=== PATIENT | female | born 1930 | race Caucasian/White ===

== ENCOUNTER 2017-04-21 14:41 | Inpatient (IN) | payer MEDICARE, BC ==
[~2017-04-21] VITALS: Ht 167.6 cm; Wt 68.0 kg
--- NOTE | ~2017-04-21 | OP ---
PATIENT NAME: ÁNGEL KHAN MEDICAL RECORD: [id number] :30 LOCATION:[id number] ADMISSION DATE:04/21/17 SURGEON: IGNACIO REYNA MD DATE OF OPERATION: 04/23/2017 PREOPERATIVE DIAGNOSIS: Left intertrochanteric hip fracture. POSTOPERATIVE DIAGNOSIS: Left intertrochanteric hip fracture. PROCEDURE: Cephalomedullary nail fixation of the intertrochanteric hip fracture -- gamma nail. SURGEON: Ignacio Reyna MD ANESTHESIA: General. INTRAOPERATIVE COMPLICATIONS: None. SUMMARY OF PATHOLOGIC FINDINGS: Intertrochanteric hip fracture consistent with the preoperative diagnosis and radiographs. IMPLANTS USED: Short gamma nail 125 with a 100-mm lag screw and a 35 mm distal interlocking screw. OPERATIVE SUMMARY IN DETAIL: After obtaining the appropriate preoperative orthopedic surgery consents as well as anesthetic consultation, evaluation, and clearance, the patient was brought to the operating room and placed on the operating table in supine position. After adequate general laryngeal mask airway was administered, the patient was placed on the fracture table. All pressure points were well padded. She was held firmly to the fracture table using the belt and strap system. Left leg was placed in the traction device, right leg was placed in a well- padded well leg mora. Under direct fluoroscopy, reduction maneuver was performed, the hip was prepped and draped in a routine sterile fashion. A small incision was made under fluoroscopic guidance just superior to the tip of the greater trochanter. An awl was then used to create an entry point for the ball-tipped guidewire and proximal reaming was then followed by insertion of the short gamma nail 11 x 180 x 125. The tip was then placed in the low center on AP and lateral fluoroscopic planes. Reaming was then followed by placement of 100 mm lag screw. Lag screw was placed at the appropriate depth and then compression was performed across the fracture. Lastly, the interlocking screw was placed again under fluoroscopy. Final radiographs were taken and submitted for radiologist review. Wounds were irrigated and closed in usual fashion. Sterile dressings were applied. The patient was awakened and taken to recovery room in stable condition. All final needle and sponge counts were correct. TRANSINT:[id number] Voice Confirmation ID: [id number] DOCUMENT ID: [id number] OPERATIVE REPORT [id number] ÁNGEL KHAN MD, JAMES KEVIN at 1427 CC: [id number] DICTATION DATE: 04/23/17 1140 SENIOR IOS DEVELOPER: 04/23/17 1159 ADM IN [place] [id number] [place] [id number]
[~2017-04-21 14:41] MED LIST: ARICEPT10 MG PO; BAYER CHEWABLE81 MG PO; BYSTOLIC5 MG PO; CELEXA10 MG PO; FORTAMET500 MG/BOT PO; HUMULIN R100 U/ML SC; LISINOPRIL10 MG PO; NAMENDA5 MG PO; PEPCID20 MG PO; VITAMIN D2000 UNIT PO; XARELTO20 MG PO; ZOCOR5 MG PO
[2017-04-21 16:02] LABS: BASOPHILS 0.1 % (0-2); EOSINOPHILS 1.4 % (0-7); HEMOGLOBIN 10.3 g/dL (12-16); IMMATURE GRANULOCYTES 0.5 % (0-5); LYMPHOCYTES 21.1 % (15-50); MCH 31.9 pg (26.0-34.0); MCHC 33.2 g/dL (31.0-37.0); MEAN PLATELET VOLUME 9.5 fL (7.4-10.4); MONOCYTES 4.6 % (2-11); NEUTROPHILS 72.3 % (40-80); PLATELET COUNT 338 10x3/uL (130-400); RBC 3.23 10x6/uL (4.00-5.40); RDW 13.6 % (11.5-14.5); WBC 13.6 10x3/uL (4.8-10.8)
[2017-04-21 16:23] LABS: APTT 25.9 SECONDS (22.8-39.4); INR 0.98 (0.85-1.17); PROTIME 12.6 SECONDS (11.6-15.0)
[2017-04-21 16:26] LABS: ALBUMIN 2.9 g/dL (3.4-5.0); ANION GAP 14.6 mmol/L (8-16); BILIRUBIN - TOTAL 0.32 mg/dL (0.2-1.3); CALCIUM 9.1 mg/dL (8.5-10.1); CARBON DIOXIDE 25.8 mmol/L (21.0-32.0); CREATININE - SERUM 1.8 mg/dL (0.6-1.3); POTASSIUM - SERUM 4.4 mmol/L (3.5-5.1); PROTEIN - SERUM 7.2 g/dL (6.4-8.2)
[2017-04-21 23:10] VITALS: BP 154/57
[2017-04-22] VITALS (7 sets, daily range): BP systolic 125–154; BP diastolic 49–63; Ht 167.6 cm; Wt 68.0 kg
[2017-04-22 00:27] LABS: APPEARANCE TURBID (CLEAR); BACTERIA MANY /hpf (NONE SEEN); BILIRUBIN NEGATIVE (NEGATIVE); COLOR YELLOW (YELLOW); EPITHELIAL CELLS RARE /hpf (0-5); GLUCOSE NEGATIVE (NEGATIVE); KETONE NEGATIVE (NEGATIVE); NITRITE NEGATIVE (NEGATIVE); PROTEIN 1+ mg/dL (NEGATIVE); UROBILINOGEN NORMAL (NORMAL); WHITE CELLS - URINE >50 /hpf (0-5)
[2017-04-22 05:18] LABS: BASOPHILS 0.2 % (0-2); EOSINOPHILS 0.4 % (0-7); HEMATOCRIT 27.5 % (36.0-48.0); IMMATURE GRANULOCYTES 0.5 % (0-5); LYMPHOCYTES 23.3 % (15-50); MCH 31.6 pg (26.0-34.0); MCHC 32.7 g/dL (31.0-37.0); MCV 96.5 fL (80.0-100.0); MEAN PLATELET VOLUME 9.6 fL (7.4-10.4); MONOCYTES 9.1 % (2-11); NEUTROPHILS 66.5 % (40-80); PLATELET COUNT 309 10x3/uL (130-400); RBC 2.85 10x6/uL (4.00-5.40); RDW 13.7 % (11.5-14.5); WBC 11.4 10x3/uL (4.8-10.8)
[2017-04-22 05:56] LABS: CALCIUM 8.6 mg/dL (8.5-10.1); CARBON DIOXIDE 28.6 mmol/L (21.0-32.0); CREATININE - SERUM 1.6 mg/dL (0.6-1.3); POTASSIUM - SERUM 4.6 mmol/L (3.5-5.1)
[2017-04-23 05:40] VITALS: BP 133/67
[2017-04-23 05:57] LABS: BASOPHILS 0.1 % (0-2); EOSINOPHILS 0.3 % (0-7); HEMATOCRIT 26.2 % (36.0-48.0); HEMOGLOBIN 8.6 g/dL (12-16); IMMATURE GRANULOCYTES 0.5 % (0-5); LYMPHOCYTES 17.4 % (15-50); MCH 31.4 pg (26.0-34.0); MCHC 32.8 g/dL (31.0-37.0); MCV 95.6 fL (80.0-100.0); MEAN PLATELET VOLUME 9.8 fL (7.4-10.4); MONOCYTES 8.4 % (2-11); NEUTROPHILS 73.3 % (40-80); PLATELET COUNT 272 10x3/uL (130-400); RBC 2.74 10x6/uL (4.00-5.40); RDW 13.6 % (11.5-14.5)
[2017-04-23 06:02] LABS: WBC 14.6 10x3/uL (4.8-10.8)
[2017-04-23 06:11] LABS: ANION GAP 11.2 mmol/L (8-16); CALCIUM 8.5 mg/dL (8.5-10.1); CARBON DIOXIDE 26.5 mmol/L (21.0-32.0); CREATININE - SERUM 1.1 mg/dL (0.6-1.3); POTASSIUM - SERUM 4.7 mmol/L (3.5-5.1)
[2017-04-23 07:03] VITALS: BP 161/64
[2017-04-23 09:54] VITALS: BP 155/56
[2017-04-23 11:10] VITALS: BP 157/63
[2017-04-23 15:07] VITALS: BP 131/60
[2017-04-23 20:30] VITALS: BP 137/59
[2017-04-24] VITALS (9 sets, daily range): BP systolic 125–166; BP diastolic 55–70
[2017-04-24 17:05] LABS: HEMATOCRIT 22.8 % (36.0-48.0); MCH 31.6 pg (26.0-34.0); MCHC 32.9 g/dL (31.0-37.0); MCV 96.2 fL (80.0-100.0); MEAN PLATELET VOLUME 9.6 fL (7.4-10.4); RBC 2.37 10x6/uL (4.00-5.40); RDW 13.8 % (11.5-14.5); WBC 13.3 10x3/uL (4.8-10.8)
[2017-04-24 17:09] LABS: HEMOGLOBIN 7.5 g/dL (12-16)
[2017-04-25] VITALS: BP 117/53
[2017-04-25 04:00] VITALS: BP 159/62
[2017-04-25 06:13] LABS: MCH 31.2 pg (26.0-34.0); MCHC 33.1 g/dL (31.0-37.0); MCV 94.3 fL (80.0-100.0); MEAN PLATELET VOLUME 9.7 fL (7.4-10.4); RDW 14.6 % (11.5-14.5); WBC 13.9 10x3/uL (4.8-10.8)
[2017-04-25 06:14] LABS: HEMATOCRIT 28.1 % (36.0-48.0); HEMOGLOBIN 9.3 g/dL (12-16); RBC 2.98 10x6/uL (4.00-5.40)
[2017-04-25 08:04] VITALS: BP 153/60
[2017-04-25 12:11] VITALS: BP 173/80
[2017-04-25 16:24] VITALS: BP 159/59
[2017-04-25 22:08] VITALS: BP 124/54
[2017-04-26 04:55] VITALS: BP 134/54
[2017-04-26 07:34] VITALS: BP 150/74
[2017-04-26] MEDS ORDERED: ELIQUIS2.5 MG PO (08:41)
[2017-04-26] MEDS ORDERED: ULTRAM50 MG PO (08:41)
[2017-04-26 12:38] VITALS: BP 141/71
[2017-04-26 15:37] VITALS: BP 157/58
== END 2017-04-26 16:40 | DRG 956 ==
LOC: D.ER 14:41 → D.MS 16:58 → D.SDCHOLD 16:58 → D.MS 20:23
PROVIDERS: Family Medicine; Orthopaedic Surgery; Physician Assistant Medical
PROC: 0QS736Z Reposition Left Upper Femur with Intramedullary Internal Fixation Device, Percutaneous Approach (ICD-10-PCS; principal; 2017-04-23 08:00)
DX: S72.142A Displaced intertrochanteric fracture of left femur, initial encounter for closed fracture (principal); S32.519A Fracture of superior rim of unspecified pubis, initial encounter for closed fracture; W18.30XA Fall on same level, unspecified, initial encounter; G30.9 Alzheimer's disease, unspecified; F02.80 Dementia in other diseases classified elsewhere, unspecified severity, without behavioral disturbance, psychotic disturbance, mood disturbance, and anxiety; H91.90 Unspecified hearing loss, unspecified ear; I10 Essential (primary) hypertension; E11.9 Type 2 diabetes mellitus without complications; E78.5 Hyperlipidemia, unspecified; E55.9 Vitamin D deficiency, unspecified

== ENCOUNTER 2017-10-15 19:51 | Inpatient (IN) | payer MEDICARE, BC ==
[~2017-10-15] VITALS: Ht 167.6 cm; Wt 50.3 kg
[~2017-10-15 19:51] MED LIST changes: +ELIQUIS2.5 MG PO; +ULTRAM50 MG PO
[2017-10-15] MEDS ORDERED: REMERON15 MG PO (20:02)
[2017-10-15] MEDS ORDERED: HYDROCODON-ACE1 EAC7 PO (20:02)
[2017-10-15] MEDS ORDERED: ZOFRAN ODT4 MG/UDTAB PO (20:03)
[2017-10-15 20:35] LABS: BASOPHILS 0.4 % (0-2); EOSINOPHILS 0.7 % (0-7); HEMATOCRIT 33.4 % (36.0-48.0); HEMOGLOBIN 10.4 g/dL (12-16); IMMATURE GRANULOCYTES 0.3 % (0-5); LYMPHOCYTES 27.6 % (15-50); MCH 31.4 pg (26.0-34.0); MCHC 31.1 g/dL (31.0-37.0); MCV 100.9 fL (80.0-100.0); MEAN PLATELET VOLUME 9.8 fL (7.4-10.4); MONOCYTES 6.3 % (2-11); NEUTROPHILS 64.7 % (40-80); RBC 3.31 10x6/uL (4.00-5.40); RDW 14.6 % (11.5-14.5); WBC 10.7 10x3/uL (4.8-10.8)
[2017-10-15 20:40] LABS: APPEARANCE CLOUDY (CLEAR); BILIRUBIN NEGATIVE (NEGATIVE); COLOR YELLOW (YELLOW); GLUCOSE NEGATIVE (NEGATIVE); KETONE NEGATIVE (NEGATIVE); NITRITE NEGATIVE (NEGATIVE); PROTEIN 2+ mg/dL (NEGATIVE); UROBILINOGEN NORMAL (NORMAL)
[2017-10-15 20:47] LABS: EPITHELIAL CELLS OCC /hpf (0-5); RED CELLS - URINE 0-5 /hpf (0-5); WHITE CELLS - URINE >50 /hpf (0-5)
[2017-10-15 20:48] LABS: ALBUMIN 2.4 g/dL (3.4-5.0); ANION GAP 9.5 mmol/L (8-16); BILIRUBIN - TOTAL 0.53 mg/dL (0.2-1.3); CARBON DIOXIDE 32.2 mmol/L (21.0-32.0); CREATININE - SERUM 3.9 mg/dL (0.6-1.3); POTASSIUM - SERUM 4.7 mmol/L (3.5-5.1); PROTEIN - SERUM 8.3 g/dL (6.4-8.2)
[2017-10-15 20:48] LABS: AMORPHOUS SEDIMENT <1+ /lpf (NONE SEEN); BACTERIA MANY /hpf (NONE SEEN); HYALINE CAST OCC /lpf (NONE SEEN)
[2017-10-15 20:55] LABS: CALCIUM 12.5 mg/dL (8.5-10.1); PLATELET COUNT 442 10x3/uL (130-400)
[2017-10-15 21:00] VITALS: BP 130/52
[2017-10-15 22:00] VITALS: BP 113/50
[2017-10-16 01:34] VITALS: BP 90/47; BMI 17.9
[2017-10-16 04:02] VITALS: BP 102/49
[2017-10-16 08:25] VITALS: BP 105/52
[2017-10-16 12:37] VITALS: BP 126/87
[2017-10-16 16:07] VITALS: BP 111/37
[2017-10-16 20:30] VITALS: BP 108/50
[2017-10-17 00:30] VITALS: BP 126/48
[2017-10-17 04:30] VITALS: BP 131/53
[2017-10-17 06:42] LABS: BASOPHILS 0.2 % (0-2); EOSINOPHILS 6.4 % (0-7); HEMATOCRIT 28.6 % (36.0-48.0); HEMOGLOBIN 9.1 g/dL (12-16); IMMATURE GRANULOCYTES 0.3 % (0-5); MCH 31.3 pg (26.0-34.0); MCHC 31.8 g/dL (31.0-37.0); MEAN PLATELET VOLUME 9.8 fL (7.4-10.4); MONOCYTES 7.5 % (2-11); NEUTROPHILS 51.6 % (40-80); PLATELET COUNT 361 10x3/uL (130-400); RBC 2.91 10x6/uL (4.00-5.40); RDW 14.2 % (11.5-14.5); WBC 9.7 10x3/uL (4.8-10.8)
[2017-10-17 06:53] LABS: MCV 98.3 fL (80.0-100.0)
[2017-10-17 07:00] LABS: ANION GAP 8.3 mmol/L (8-16); CALCIUM 10.2 mg/dL (8.5-10.1); CARBON DIOXIDE 29.9 mmol/L (21.0-32.0); POTASSIUM - SERUM 4.2 mmol/L (3.5-5.1)
[2017-10-17 08:13] VITALS: BP 104/59
[2017-10-17 14:00] VITALS: BP 114/44
[2017-10-17 15:43] VITALS: Ht 167.6 cm; Wt 50.3 kg
[2017-10-17 16:19] VITALS: BP 121/52
[2017-10-17 20:44] VITALS: BP 109/52
[2017-10-18 00:24] VITALS: BP 124/54
[2017-10-18 04:58] VITALS: BP 122/45
[2017-10-18 08:39] VITALS: BP 114/85
[2017-10-18 13:02] VITALS: BP 106/42
[2017-10-18 14:49] LABS: BASOPHILS 0.3 % (0-2); EOSINOPHILS 4.8 % (0-7); HEMATOCRIT 30.4 % (36.0-48.0); HEMOGLOBIN 9.9 g/dL (12-16); IMMATURE GRANULOCYTES 0.3 % (0-5); MCHC 32.6 g/dL (31.0-37.0); MEAN PLATELET VOLUME 9.7 fL (7.4-10.4); MONOCYTES 6.8 % (2-11); NEUTROPHILS 56.8 % (40-80); PLATELET COUNT 330 10x3/uL (130-400); RBC 3.19 10x6/uL (4.00-5.40); RDW 13.6 % (11.5-14.5); WBC 8.7 10x3/uL (4.8-10.8)
[2017-10-18 15:11] LABS: MCV 95.3 fL (80.0-100.0)
[2017-10-18 15:20] LABS: ANION GAP 11.1 mmol/L (8-16); CALCIUM 9.6 mg/dL (8.5-10.1); CARBON DIOXIDE 27.4 mmol/L (21.0-32.0)
[2017-10-18 15:22] LABS: CREATININE - SERUM 2.2 mg/dL (0.6-1.3); POTASSIUM - SERUM 3.5 mmol/L (3.5-5.1)
[2017-10-18 16:37] VITALS: BP 110/49
[2017-10-18 23:19] VITALS: BP 111/64
[2017-10-19 03:40] VITALS: BP 136/82
[2017-10-19 06:16] LABS: BASOPHILS 0.1 % (0-2); EOSINOPHILS 6.7 % (0-7); HEMATOCRIT 28.7 % (36.0-48.0); HEMOGLOBIN 9.3 g/dL (12-16); IMMATURE GRANULOCYTES 0.3 % (0-5); LYMPHOCYTES 30.5 % (15-50); MCH 30.9 pg (26.0-34.0); MCHC 32.4 g/dL (31.0-37.0); MCV 95.3 fL (80.0-100.0); MONOCYTES 6.9 % (2-11); NEUTROPHILS 55.5 % (40-80); PLATELET COUNT 363 10x3/uL (130-400); RBC 3.01 10x6/uL (4.00-5.40); RDW 13.7 % (11.5-14.5); WBC 8.7 10x3/uL (4.8-10.8)
[2017-10-19 06:40] LABS: ANION GAP 9.9 mmol/L (8-16); CALCIUM 9.6 mg/dL (8.5-10.1); CARBON DIOXIDE 28.5 mmol/L (21.0-32.0); CREATININE - SERUM 2.1 mg/dL (0.6-1.3); POTASSIUM - SERUM 3.4 mmol/L (3.5-5.1)
[2017-10-19 08:04] VITALS: BP 128/64
[2017-10-19 13:24] VITALS: BP 125/56
[2017-10-19 16:40] VITALS: BP 106/46
[2017-10-19 20:32] VITALS: BP 100/54
[2017-10-20 04:49] VITALS: BP 154/49
[2017-10-20 09:14] VITALS: BP 128/54
[2017-10-20 12:19] VITALS: BP 105/50
[2017-10-20] MEDS ORDERED: LEVAQUIN750 MG PO (15:01)
== END 2017-10-20 17:48 | disposition home health service (06) | DRG 690 ==
LOC: D.ER 19:51 → D.MS 21:29 → D.EDHOLD 21:29 → D.MS 22:35 → D.SDCHOLD 10-20 14:44 → D.MS 10-20 14:46
PROVIDERS: Emergency Medicine; Family Medicine
DX: N39.0 Urinary tract infection, site not specified (principal); Z68.1 Body mass index [BMI] 19.9 or less, adult; E87.0 Hyperosmolality and hypernatremia; E11.9 Type 2 diabetes mellitus without complications; E78.5 Hyperlipidemia, unspecified; Z74.01 Bed confinement status; E86.0 Dehydration; N28.9 Disorder of kidney and ureter, unspecified; G30.9 Alzheimer's disease, unspecified; F02.80 Dementia in other diseases classified elsewhere, unspecified severity, without behavioral disturbance, psychotic disturbance, mood disturbance, and anxiety